=== PATIENT | female | born 1985 | race Two or more races ===

== ENCOUNTER 2016-08-31 02:51 | Emergency (ER) | payer OTHER ==
--- NOTE | ~2016-08-31 | CT4 ---
[facility] A Service of [facility] RADIOLOGY TEXT RESULTS PATIENT: ARYA WAGGONERIOUS LOCATION: [facility] : 85 UNIT #: [id number] AGE: [address]: Praneeth Guerra SEX: F ORDER DR: [id number] [place], [place] [address] [id number] E MR#: [id number] Acc #: [id number] NAME: TEMO WAGGONER : 1985 SEX: F STUDY DATE/TIME: 08/31/2016 4:08 UNIT: [facility] ROOM: STUDY DESCRIPTION: CT Abd and Pelv Wo Cont Attending Physician: Praneeth Guerra Ordering Physician: Praneeth Guerra Primary Care Physician: Primary Care Physician No MEDICAL IMAGING REPORT This report is preliminary unless electronic signature is present EXAM CT abdomen and pelvis INDICATIONS Epigastric abdominal pain. Diarrhea. Nausea. TECHNIQUE CT of the abdomen and pelvis without contrast. Coronal and sagittal reconstructions were obtained. The CT exam was performed with one or more of the following radiation dose reduction techniques: automatic exposure control, adjustment of mA and/or kV according to patient size, and iterative reconstruction. COMPARISON None available. FINDINGS Abdomen: Noncontrast evaluation of the liver, pancreas, spleen, and adrenal glands are within normal limits. No renal calculi. No hydronephrosis. There is a calcified gallstone in the gallbladder. Gallbladder is not distended. No pericholecystic inflammation. The extrahepatic bile duct is mildly dilated measuring 1.0 cm. There is a transition to decompressed bile duct at the ampulla/pancreatic head. No distal obstructing stone or mass is identified on this noncontrasted study. The bowel is not dilated. The appendix is normal. Pelvis: There is a small volume of free fluid in the pelvis. This is likely physiologic. The uterus is retroflexed. Ovaries are within normal [facility] A Service of [facility] RADIOLOGY TEXT RESULTS PATIENT: PETTYTEMO LOCATION: [facility] : 85 UNIT #: [id number] AGE: [address]: Praneeth Guerra SEX: F ORDER DR: stevo. No enlarged pelvic or inguinal lymph nodes. The bladder is decompressed. No acute osseous abnormalities. IMPRESSION 1. Cholelithiasis. No CT evidence of acute cholecystitis. 2. Mildly dilated extrahepatic common bile duct to the level of the pancreatic head/ampulla. No distal obstructing mass or stones identified on this noncontrast study. Please correlate liver function tests to determine if there is a biliary obstruction. If present then a MRCP/ERCP may be useful to evaluate the common duct. A right quadrant ultrasound could be acquired, however, the distal duct is often challenging as seen on a ultrasound. 3. No urinary calculi. Normal appendix. Dictated by... Ian Viramontes M.D. THIS IS AN ELECTRONICALLY VERIFIED REPORT Ian Viramontes M.D. at 08/31/2016 9:07 PM RAYSHAWN/luis TD: 08/31/2016 07:02 JOB #: [id number] MEDICAL IMAGING REPORT Page 1 of 1 COPY
[2016-08-31 03:37] LABS: URINE SOURCE CLEAN CATCH
[2016-08-31 03:41] LABS: BASOPHIL# 0.1 X10e3 (0-0.3); BASOPHIL% 0.6 % (0-2.5); EOSINOPHIL# 0.2 X10e3 (0-0.7); EOSINOPHIL% 1.9 % (0.0-7.0); HEMOGLOBIN 13.1 gm/dL (12.0-16.0); LYMPHOCYTE# 2.2 X10e3 (1.0-3.5); LYMPHOCYTE% 19.1 % (17.0-45.0); MEAN CELL VOLUME 75.2 FL (83-96); MEAN CORPUSCULAR HEMOGLOBIN 23.9 PG (28-34); MEAN CORPUSCULAR HGB CONC 31.8 g/dL (30-36); MEAN PLATELET VOLUME 8.8 FL (6.5-11.5); MONOCYTE# 0.9 X10e3 (0-1.0); MONOCYTE% 7.4 % (3.0-12.0); NEUTROPHIL# 8.2 X10e3 (1.5-7.1); PLATELET COUNT 241 X10e3 (140-420); RED BLOOD COUNT 5.46 X10e (3.90-5.30); RED CELL DISTRIBUTION WIDTH 14.2 % (11.0-15.5); WHITE BLOOD COUNT 11.5 X10e3 (4.0-10.5)
[2016-08-31 03:43] LABS: URINE APPEARANCE CLOUDY; URINE BILIRUBIN NEG (NEG); URINE BLOOD NEG (NEG); URINE COLOR DK YELLOW; URINE GLUCOSE NEG (NEG); URINE KETONE 1+ (NEG); URINE LEUKOCYTE ESTERASE TRACE (NEG); URINE NITRATE NEG (NEG); URINE PROTEIN TRACE (NEG); URINE SPECIFIC GRAVITY 1.033 (1.003-1.035)
[2016-08-31 03:45] LABS: CULTURE INDICATED? YES; URINE BACTERIA AUWI 3+ (NEGATIVE); URINE SQUAMOUS EPITHELIAL CELL MOD /[HPF]
[2016-08-31 03:47] LABS: DIFF IND NO
[2016-08-31 04:09] LABS: ALBUMIN SERUM 4.5 g/dL (3.5-5.0); ALKALINE PHOSPHATASE 41 U/L (32-92); ALT (SGPT) 13 U/L (10-40); AMYLASE 13 U/L (0-46); AST (SGOT) 15 U/L (10-42); BILIRUBIN,TOTAL 0.6 mg/dL (0.2-2.0); BLOOD UREA NITROGEN 11 mg/dL (9-23); BUN/CREATININE RATIO 18.33; CALCIUM SERUM 9.2 mg/dL (8.4-10.2); CARBON DIOXIDE 22 mmol/L (22-31); CHLORIDE 105 mmol/L (100-111); CREATININE SERUM 0.6 mg/dL (0.6-1.4); GLOM FILT RATE Estimated 121.5 mL/min (>60); GLUCOSE FASTING 108 mg/dL (70-110); LIPASE 14 U/L (22-51); POTASSIUM 3.5 mmol/L (3.5-5.1); PROTEIN TOTAL SERUM 7.6 g/dL (6.0-8.3); SODIUM 135 mmol/L (135-145)
[2016-08-31 04:10] LABS: BILIRUBIN, DIRECT <0.1 mg/dL (0.0-0.2); BILIRUBIN,INDIRECT 0.5 mg/dL (0.0-0.9)
[2016-09-02 21:26] LABS: CHLAMYDIA TRACH Not Detected (Not Detected); N GONOR Not Detected (Not Detected)
[2016-09-28] MEDS ORDERED: IBUPROFEN PO (08:17)
[2016-09-28] MEDS ORDERED: ACETAMINOPHEN650 M1 PO (08:18)
== END 2016-08-31 07:03 | disposition home or self-care (01) ==
LOC: CED 02:51
PROVIDERS: Nurse Practitioner
DX: K80.70 Calculus of gallbladder and bile duct without cholecystitis without obstruction (principal); N76.0 Acute vaginitis; F17.210 Nicotine dependence, cigarettes, uncomplicated; Z98.890 Other specified postprocedural states
CPT/HCPCS: 36415; 74176; 80048; 80076; 81003; 82150; 83690; 84703; 85025; 87086; 87491; 87591; 87808; 87905; 96374; 96375; 99284; J0696; J1885; J2405

== ENCOUNTER → 2016-09-28 | Day surgery (SDC) | payer OTHER ==
[~2016-09-28] MED LIST: ACETAMINOPHEN650 M1 PO; IBUPROFEN PO
--- NOTE | ~2016-09-28 | CR84 ---
[facility] A Service of [facility] RADIOLOGY TEXT RESULTS PATIENT: TEMO WAGGONER LOCATION: [facility] : 85 UNIT #: [id number] AGE: [address]: Jose Adams MD SEX: F ORDER DR: [id number] [facility] [address] [place], [place] [address] [id number] O MR#: [id number] Acc #: [id number] NAME: TEMO WAGGONER : 1985 SEX: F STUDY DATE/TIME: 09/28/2016 7:58 UNIT: [facility] ROOM: STUDY DESCRIPTION: CR ERCP Biliary and Pancr SI Attending Physician: Jose Adams M.D. Ordering Physician: Jose Adams M.D. Primary Care Physician: No Primary Care Physician MEDICAL IMAGING REPORT This report is preliminary unless electronic signature is present EXAM ERCP 09/28/2016 HISTORY Gallstones and biliary colic with dilated common bile duct noted on CT scan of the abdomen and pelvis 08/31/2016. Epigastric abdominal pain, diarrhea and nausea since August 2016. FINDINGS ERCP was performed by Dr. Adams. 5 spot film radiographs of the upper abdomen were obtained and 3.22 minutes of fluoroscopy time was utilized. Contrast injection of the pancreatic duct was normal. 5-Austrian 5 cm Torres stent was placed in the pancreatic duct. Dr. Adams was unable to access the common bile duct. Dictated by... Conrado Granado M.D. THIS IS AN ELECTRONICALLY VERIFIED REPORT Conrado Granado M.D. at 09/29/2016 9:23 AM KRT/kristen TD: 09/28/2016 16:18 JOB #: [id number] MEDICAL IMAGING REPORT Page 1 of 1 COPY
--- NOTE | ~2016-09-28 | OR ---
Unit #: [id number] #: [id number] Patient: TEMO WAGGONER [id number] [facility]. [place], [place] [address] [id number] O MR#: [id number] NAME: TEMO WAGGONER ROOM: Date of Procedure: 09/28/2016 Admission Date: 09/28/2016 Surgeon: Jose Adams M.D. : 1985 Attending Physician: Jose Adams M.D. OPERATIVE REPORT PROCEDURES PERFORMED Esophagogastroduodenoscopy to descending duodenum and endoscopic retrograde cholangiopancreatography with pancreatic stent placement. INDICATIONS FOR PROCEDURE A 31-year-old female with significant right upper quadrant pain, common bile duct dilated to 1 cm and gallstones, undergoing evaluation with upper endoscopy and ERCP for possible bile duct obstruction with stones. MEDICATIONS Monitored anesthesia. POSTOPERATIVE FINDINGS 1. EGD exam shows mild gastritis, otherwise normal. 2. ERCP shows normal pancreatic duct. 3. CBD could not be cannulated despite several attempts. 4. 5 x 5 Torres placed in pancreatic duct to avoid any pancreatitis because of manipulation. PLAN We will consider MRCP for further evaluation. We will also have a surgery consult for laparoscopic cholecystectomy and intraoperative cholangiogram. DESCRIPTION OF PROCEDURE The patient was explained of the procedure, risks, and benefits along with risks and benefits of anesthesia. She was brought to the endoscopy room. Risk of pancreatitis was discussed in detail. She was laid in a prone position. EGD was done first. Scope was passed down the mouth into the esophagus, stomach, duodenum, and distal duodenum. Findings as described. Gently, the scope was pulled out. She tolerated this part very well. At this time, side-viewing ERCP scope was passed down the mouth into the esophagus and stomach taken all the way to ampulla and appears to be a long intraduodenal part of the ampulla. Pancreatic duct was cannulated easily first, which appears to be normal, slightly dilated in pancreatic head area, leaving the wire in the pancreatic duct. I tried to cannulate the bile duct several times and were not able to. At this point, we placed a 5 x 5 Torres in order to avoid any pancreatitis and then the scope was pulled out. Stomach was decompressed. She tolerated it well. No major complications were seen. Unit #: [id number] #: [id number] Patient: WAGGONER,TEMO Dictated by... Demarco Rausch/christian TD: 09/28/2016 22:59 JOB #: [id number] OPERATIVE REPORT Page 1 of 1 X Jose Adams MD PROCEDURE OPERATIVE NOTE
== END | disposition home or self-care (01) ==
LOC: COPS 07:32
DX: K83.8 Other specified diseases of biliary tract (principal); K80.80 Other cholelithiasis without obstruction; K29.70 Gastritis, unspecified, without bleeding; F17.210 Nicotine dependence, cigarettes, uncomplicated; Z98.890 Other specified postprocedural states
CPT/HCPCS: 74330; 84703; J2250; J3010